=== PATIENT | male | born 1985 ===

== ENCOUNTER 2022-02-12 21:09 | Emergency (ER) | payer OTHER, SELFPAY ==
[2022-02-12 21:17] VITALS: BP 161/87; PULSE 93; RESP 16; TEMP 36.3; O2SAT 97; BMI 26.4
--- NOTE | 2022-02-12 21:23 | DI.RAD.S_ITS ---
PROCEDURE: XR CHEST 1V INDICATIONS: chest pain TECHNIQUE: One view of the chest was acquired. COMPARISON: None. FINDINGS: Surgical changes and devices: None. Lungs and pleura: Lungs are clear. No pleural effusions or pneumothorax. Mediastinum: Mediastinal contours appear normal. Heart size is normal. Bones and chest wall: No suspicious bony lesions. Overlying soft tissues appear unremarkable. IMPRESSION: No acute pulmonary process. Dictated by: Kamilla Garcia M.D. on 02/12/2022 at 21:58 Approved by: Kamilla Garcia M.D. on 02/12/2022 at 21:58
[2022-02-12 21:29] VITALS: PULSE 86; RESP 24; O2SAT 96
--- NOTE | 2022-02-12 21:29 | PC.NURSE ---
pt states pain x 3 days intermittent in nature feels like a catch in his left chest called the nurse hot line who told him to come to the ed
[2022-02-12 21:30] VITALS: BP 155/76; PULSE 84; RESP 18; O2SAT 95
[2022-02-12 21:33] LABS: Add Manual Diff / Slide Review NO; Basophils Absolute Auto 100 /uL (0-100); Basophils Percent Auto 1.1 % (0-2); Eosinophils Absolute Auto 200 /uL (0-450); Eosinophils Percent Auto 3.7 % (2-4); Hemoglobin 13.3 g/dL (13.5-17.5); Lymphocytes Absolute Auto 2600 /uL (1100-4500); Lymphocytes Percent Auto 51.1 % (25-40); Mean Corpuscular HGB Conc 34.9 % (30-36); Mean Corpuscular Hemoglobin 31.7 PG (26-34); Mean Corpuscular Volume 90.9 fL (80-100); Monocytes Absolute Auto 500 /uL (0-900); Monocytes Percent Auto 10.1 % (3-14); Neutrophils Absolute Auto 1800 /uL (1500-7000); Platelet Count 291 X10^3/uL (150-400); Red Blood Cell Count 4.18 X10^6/uL (4.5-5.9); Red Cell Distribution Width 12.5 % (11.6-14.8); White Blood Cell Count 5.2 X10^3/uL (4.5-11.0)
--- NOTE | 2022-02-12 21:38 | ED.CHESTPAIN ---
HPI - Chest Pain General Chief Complaint: Chest Pain Stated Complaint: chest pain x3 days Time Seen by Provider: 02/12/22 21:15 History of Present Illness HPI narrative: Otherwise healthy 36-year-old gentleman presents with 3 days of left-sided chest pain. He notices discrete episodes of sharp stabbing pain just to the left of his sternum tend to be brief and self resolving however over the last 24 hours he is noticed that these episodes are having a lingering dull pain which was causing concern. Not associated with palpitations, diaphoresis, dyspnea, nausea. He is never had any cardiac issues and does not have a smoking history or significant family history of cardiac issues. He is not currently on any prescription medications. He works for the [employer] and has a relatively active job and has not done any extensive traveling or have any other risk factors for pulmonary embolism. Notes that he did have a upper respiratory viral type infection about a month ago with complete resolution of symptoms. Related Data Allergies Allergy/AdvReac Type Severity Reaction Status Date / Time No Known Drug Allergies Allergy Verified 02/12/22 22:38 Review of Systems Review of Systems Narrative: Remainder of complete review of systems is otherwise unremarkable except for that included in the HPI. Exam Initial Vital Signs Initial Vital Signs: Vital Signs Temperature 97.3 F L 02/12/22 21:17 Pulse Rate 93 H 02/12/22 21:17 Respiratory Rate 16 02/12/22 21:17 Blood Pressure 161/87 H 02/12/22 21:17 Pulse Oximetry 97 02/12/22 21:17 Oxygen Delivery Method 02/12/22 21:17 General: Healthy appearing, in no acute distress. Able to give a complete and coherent history. Well-nourished well-developed HEENT: Moist mucous membranes, normal sclera with reactive pupils, Neck: No JVD, supple Respiratory: Lungs are clear to auscultation, no wheezing no rales no rhonchi. Full and symmetrical air movement Chest: No reproducible chest pain with palpation Cardiac: Regular rate and rhythm no murmurs no bruits Abdomen: Soft, nontender, good bowel tones, no flank pain Skin: Warm and dry, no rashes Neurologic: Grossly neurologically intact with no obvious asymmetries or abnormalities Extremities: No trauma, well perfused Psych: Cooperative, appropriate insight and affect Course Orders Ordered: ED Orders 12/25/22 21:20 Complete Blood Count AUTO DIFF Stat Comprehensive Metabolic Panel Stat D Dimer Stat Lipase Stat Magnesium Stat Partial Thromboplastin Time Stat Prothrombin Time INR Stat Troponin & CK Cardiac Panel Stat 02/12/22 21:23 XR chest 1V Stat EKG-12 Lead Stat Vital Signs Vital signs: Vital Signs - 8 hr 02/12/22 21:17 Temperature 97.3 F L Pulse Rate 93 H Respiratory Rate 16 Blood Pressure 161/87 H Pulse Oximetry 97 Oxygen Delivery Method Room Air MDM - Chest Pain Lab Data Result diagrams: 02/12/22 21:20 02/12/22 21:20 Labs: Lab Results 02/12/22 02/12/22 02/12/22 Range/Units 21:20 21:20 21:20 WBC 5.2 (4.5-11.0) X10^3/uL RBC 4.18 L (4.5-5.9) X10^6/uL Hgb 13.3 L (13.5-17.5) g/dL Hct 38.0 L (41-53) % MCV 90.9 (80-100) fL MCH 31.7 (26-34) PG MCHC 34.9 (30-36) % RDW 12.5 (11.6-14.8) % Plt Count 291 (150-400) X10^3/uL Neut % (Auto) 34.0 L (50-75) % Lymph % (Auto) 51.1 H (25-40) % [place] % (Auto) 10.1 (3-14) % Eos % (Auto) 3.7 (2-4) % Baso % (Auto) 1.1 (0-2) % Neut # (Auto) 1800 (1781-8884) /uL Lymph # (Auto) 2600 (5940-2503) /uL [place] # (Auto) 500 (0-900) /uL Eos # (Auto) 200 (0-450) /uL Baso # (Auto) 100 (0-100) /uL PT 11.1 (10.1-12.7) SECONDS INR 1.0 (0.9-1.3) APTT 29 (26-36) SECONDS D-Dimer (<500) ng/ml Sodium 137 (137-145) mmol/L Potassium 3.4 (3.4-5.1) mmol/L Chloride 103 (98-107) mmol/L Carbon Dioxide 25 (22-32) mmol/L BUN 14 (9-20) mg/dL Creatinine 0.82 (0.66-1.25) mg/dL Estimated GFR > 60 (>60) mL/min BUN/Creatinine Ratio 17.1 (6-22) Glucose 106 H (70-100) mg/dL Calcium 8.9 (8.4-10.2) mg/dL Magnesium 1.8 (1.6-2.3) mg/dL Total Bilirubin 0.4 (0.2-1.3) mg/dL AST 29 (17-59) IU/L ALT 26 (<50) IU/L Alkaline Phosphatase 55 (38-126) U/L Total Creatine Kinase 109 (55-170) U/L CK-MB (CK-2) 0.53 (<2.37) ng/mL CK-MB (CK-2) Rel Index 0.5 L (1.5-5.0) % Troponin I < 0.012 (0.01-0.034) ng/mL Total Protein 7.5 (6.3-8.2) g/dL Albumin 4.5 (3.5-5.0) g/dL Globulin 3.0 (1.7-4.1) g/dL Albumin/Globulin Ratio 1.5 (1.0-2.8) Lipase 68 (23-300) U/L 12/25/22 Range/Units 21:20 WBC (4.5-11.0) X10^3/uL RBC (4.5-5.9) X10^6/uL Hgb (13.5-17.5) g/dL Hct (41-53) % MCV (80-100) fL MCH (26-34) PG MCHC (30-36) % RDW (11.6-14.8) % Plt Count (150-400) X10^3/uL Neut % (Auto) (50-75) % Lymph % (Auto) (25-40) % [place] % (Auto) (3-14) % Eos % (Auto) (2-4) % Baso % (Auto) (0-2) % Neut # (Auto) (9691-1805) /uL Lymph # (Auto) (7161-4745) /uL [place] # (Auto) (0-900) /uL Eos # (Auto) (0-450) /uL Baso # (Auto) (0-100) /uL PT (10.1-12.7) SECONDS INR (0.9-1.3) APTT (26-36) SECONDS D-Dimer 379 (<500) ng/ml Sodium (137-145) mmol/L Potassium (3.4-5.1) mmol/L Chloride (98-107) mmol/L Carbon Dioxide (22-32) mmol/L BUN (9-20) mg/dL Creatinine (0.66-1.25) mg/dL Estimated GFR (>60) mL/min BUN/Creatinine Ratio (6-22) Glucose (70-100) mg/dL Calcium (8.4-10.2) mg/dL Magnesium (1.6-2.3) mg/dL Total Bilirubin (0.2-1.3) mg/dL AST (17-59) IU/L ALT (<50) IU/L Alkaline Phosphatase (38-126) U/L Total Creatine Kinase (55-170) U/L CK-MB (CK-2) (<2.37) ng/mL CK-MB (CK-2) Rel Index (1.5-5.0) % Troponin I (0.01-0.034) ng/mL Total Protein (6.3-8.2) g/dL Albumin (3.5-5.0) g/dL Globulin (1.7-4.1) g/dL Albumin/Globulin Ratio (1.0-2.8) Lipase (23-300) U/L Imaging Data Chest x-ray: Radiologist's Impression: FINDINGS:? ? Surgical changes and devices:? None.? ? Lungs and pleura:? Lungs are clear.? No pleural effusions or pneumothorax.? ? Mediastinum:? Mediastinal contours appear normal.? Heart size is normal.? ? Bones and chest wall:? No suspicious bony lesions.? Overlying soft tissues appear unremarkable.? ? IMPRESSION:? No acute pulmonary process. ? ? Dictated by: Kamilla Garcia M.D. on 02/12/2022 at 21:58 ? ? ECG Data Interpretation: Independently assessed Sinus rhythm at a rate of 89 Normal intervals, normal axis Incomplete right bundle branch, no ischemic changes MDM Narrative Medical decision making narrative: Otherwise healthy 36-year-old gentleman presents with intermittent episodes of left-sided chest wall pain with increasing intensity and frequency over the last 3 days. Differential includes acute coronary syndrome, viral etiology, shingles, pulmonary embolism, cardiomyopathy or pericarditis, cardiac arrhythmia, as well as musculoskeletal pain Chest x-ray, EKG, chemistries, CBC, cardiac enzymes and D-dimer are all normal. Findings reviewed with patient. Most likely explanation at this point is musculoskeletal chest pain reassurance is given. Recommended ibuprofen should he have continued issues and follow-up with his primary care doctor if new symptoms develop. Encouraged him to return to the emergency department if he feels that he is developing worsening findings. Questions are answered and he is safe for discharge home Discharge Plan Departure Patient Disposition: Home Clinical Impression: Chest pain, musculoskeletal Instructions: DI for Atypical Chest Pain Activity Restrictions/Additional Instructions: Thank you for coming in today After thorough evaluation I am seeing no evidence of heart attack, collapsed lung, pneumonia, blood clots in your lungs, abnormal heart rhythms or any other suggestion of life-threatening explanations for your pain. I suspect that this is musculoskeletal and related to your chest wall rather than your heart. At this point if it seems to be bothering you it is okay to try some ibuprofen. It is okay to simply ignore it for the time being as well. If you find that you are getting worse or develop any new symptoms, please feel free to return to the emergency department for further evaluation.
[2022-02-12 21:39] LABS: Prothrombin Time 11.1 SECONDS (10.1-12.7)
[2022-02-12 21:41] LABS: PTT Partial Thromboplastin Tim 29 SECONDS (26-36)
[2022-02-12 21:43] LABS: Alanine Aminotransferase 26 IU/L (<50); Albumin 4.5 g/dL (3.5-5.0); Albumin Globulin Ratio 1.5 (1.0-2.8); Alkaline Phosphatase 55 U/L (38-126); Aspartate Aminotransferase 29 IU/L (17-59); BUN Creatinine Ratio 17.1 (6-22); Bilirubin Total 0.4 mg/dL (0.2-1.3); Blood Urea Nitrogen 14 mg/dL (9-20); Calcium 8.9 mg/dL (8.4-10.2); Carbon Dioxide 25 mmol/L (22-32); Chloride 103 mmol/L (98-107); Creatine Kinase 109 U/L (55-170); Estimated Glomerular Filt Rate > 60 mL/min (>60); Glucose 106 mg/dL (70-100); Lipase 68 U/L (23-300); Magnesium 1.8 mg/dL (1.6-2.3); Potassium 3.4 mmol/L (3.4-5.1); Sodium 137 mmol/L (137-145); Total Protein 7.5 g/dL (6.3-8.2)
[2022-02-12 21:55] LABS: Troponin I < 0.012 ng/mL (0.01-0.034)
[2022-02-12 21:59] LABS: CKMB % Relative Index 0.5 % (1.5-5.0); Creatine Kinase MB 0.53 ng/mL (<2.37); HEMOLYSIS 15 (0-50)
[2022-02-12 22:00] VITALS: BP 140/75; PULSE 77; RESP 18; O2SAT 95
[2022-02-12 22:04] LABS: D Dimer 379 ng/ml (<500)
[2022-02-12 22:30] VITALS: BP 134/74; PULSE 72; RESP 16; O2SAT 96
[2022-02-12 23:00] VITALS: BP 133/74; PULSE 65; RESP 12; O2SAT 95
== END 2022-02-12 23:23 | disposition home or self-care (01) ==
PROVIDERS: Emergency Provider Emergency Medicine
DX: R07.89 Other chest pain (principal)
CPT/HCPCS: 36415; 71045; 80053; 82550; 82553; 83690; 83735; 84484; 85025; 85379; 85610; 85730; 93005; 99283; 99284